=== PATIENT | female | born 1975 | race Caucasian/White ===

== ENCOUNTER 2018-12-01 10:40 | Outpatient (CLI) | payer OTHER ==
[~2018-12-01] VITALS: Ht 157.5 cm; Wt 92.7 kg
--- NOTE | ~2018-12-01 | HEMODYNAMI ---
PATIENT:ANITA BENJAMIN MEDICAL RECORD: [id number] : 71 LOCATION:D.CAT ADMISSION DATE: 12/01/18 Generatedon:12/01/201813:27 Patient name: ANITA BENJAMIN Patient #: [id number] SSN: : 1975 Date of study: 12/01/2018 Page: Of Hemodynamic Procedure Report Patient Data Patient Demographics Procedure consent was obtained First Name: ANITA Gender: Female Last Name: CASSIDY : 1975 Patient #: [id number] Age: 43 year(s) Race: Unknown Additional ID: [id number] Contact details [address]: [address] [place] [address] State: [place] City: [place] Zip code: [address] Past Medical History Allergies Allergen Reaction Date Comments Reported Codeine 12/01/2018 Admission Admission Data Admission Date: 12/01/2018 Admission Time: 10:40 Admit Source: Other Height (in.): 63 BSA: 1.94 (m2) Height (cm.): 160.02 BMI: 35.61 (kg/m2) Weight (lbs.): 201 Weight (kg.): 91.17 Lab Results Lab Result Date: 12/01/2018 Lab Result Time: 0:00 Biochemistry Name Units Result Min Max BUN mg/dl 10 --(-*--)-- 7 18 Creatinine mg/dl 0.9 --(-*--)-- 0.6 1.3 CBC Name Units Result Min Max Hemoglobin g/dl 14.2 --(*---)-- 13.5 17.5 Procedure Procedure Types Cath Procedure Diagnostic Procedure LHC LHC w/Coronaries Procedure Description Procedure Date Procedure Date: 12/01/2018 Procedure Start Time: 13:15 Procedure End Time: 13:26 Procedure Staff Name Function Tee Parrish MD Performing Physician Janny Dior RT Monitor Francisco Javier [place] RT Scrub Jayde Hilario RN Nurse Adilson Pineda RN Director Of Resource Development Procedure Data Cath Procedure Fluoroscopy Diagnostic fluoroscopy Total fluoroscopy Time: 1.5 time: 1.5 min min Diagnostic fluoroscopy Total fluoroscopy dose: 367 dose: 367 mGy mGy Contrast Material Contrast Material Type Amount (ml) Isovue 300 46 Entry Location Entry Primary Successful Side Size Upsize Upsize Entry Closure Momin ccessful Closure Location (Fr) 1 (Fr) 2 (Fr) Remarks Device Remarks Radial Right 6 Fr Mechanical artery Short Compression Estimated blood loss: 5 ml Diagnostic catheters Device Type Used For End Catheter Placement DIAGNOSTIC 5FR Infinity Procedure RBL-TG ([id number]) Procedure Complications No complications Procedure Medications Medication Administration Route Dosage 0.9% NaCl I.V. 100 ml/hr Oxygen etCO2 Nasal cannula 2 l/min Lidocaine 2% added to field 20 Heparin Flush Bag added to field 2 bags (1000units/500ml NS) Radial Cocktail added to field 1 syringe (Verapomil 2mg/Nitro 400mcg/Heparin 1500units) Versed I.V. 2 mg Fentanyl I.V. 50 mcg Versed I.V. 2 mg Fentanyl I.V. 50 mcg Hemodynamics Rest BSA: 1.94 (m2) HGB: 14.2 (g/dl) O2 Consumption: Estimated: 202.31 (ml/min) O2 Co nsumption indexed: Estimated:104.28 (ml/min/m) Heart Rate: 82 (bpm) Pressure Samples Time Site Value (mmHg) Purpose Heart Use Rate(bpm) 13:21 LV 126/-1,14 Snapshot 77 13:21 AO 101/70(85) Pullback 80 13:21 LV 119/13,11 Pullback 80 Gradients Valve Time Site 1 Site 2 Mean SEP/DFP Peak To Heart Use (mmHg) (sec/min) Peak Rate (mmHg) (bpm) Aortic 13:21 LV AO 12 21 18 80 119/13,11 101/70(85) Calculations Valve P-P Mean Valve Index Valve Source Name Gradient Area Flow (cm2) Aortic 18 12 18 12 Snapshots Pre Cath Intra NCS Post Cath Vital Signs Time Heart Resp SPO2 etCO2 NIBP (mmHg) Rhythm Pain Sedation Rate (ipm) (%) (mmHg) Status Level (bpm) 13:04:16 62 13 100 34.6 124/80(100) NSR 0 (11) 10(A) , No pain 13:09:11 80 15 98 35.4 124/80(94) NSR 0 (11) 10(A) , No pain 13:13:31 82 19 99 21.8 120/75(91) NSR 0 (11) 10(A) , No pain 13:17:49 80 13 99 29.4 102/72(84) NSR 0 (11) 9(A) , No pain 13:22:03 79 14 98 28.6 106/63(86) NSR 0 (11) 9(A) , No pain 13:26:17 75 14 100 26.3 118/69(83) NSR 0 (11) 10(A) , No pain Medications Time Medication Route Dose Verified Delivered Reason Notes E ffectiveness by by 13:03:22 0.9% NaCl I.V. 100 Tee Jayde used for ml/hr Francois Sulaiman procedure MD ECHEVARRIA 13:03:30 Oxygen etCO2 2 l/min Tee Jayde used for Nasal Francois Sulaiman procedure cannula MD ECHEVARRIA 13:03:36 Lidocaine 2% added 20ml Tee Oliveira for local to vial Francois Francois anesthetic field MD PATRICK 13:03:41 Heparin Flush added 2 bags Tee Oliveira used for Bag to Francois Francois procedure (1000units/500ml field MD PATRICK NS) 13:03:47 Radial Cocktail added 1 Tee Tee used for (Verapomil to syringe Francois Francois procedure 2mg/Nitro field MD PATRICK 400mcg/Heparin 1500units) 13:11:14 Fentanyl I.V. 50 mcg Tee Jayde for FrancoisRamiro Hilario sedation MD ECHEVARRIA 13:11:14 Versed I.V. 2 mg Tee Jayde for FrancoisRamiro Hilario sedation MD ECHEVARRIA 13:16:46 Versed I.V. 2 mg Tee Jayde for FrancoisRamiro Hilario sedation MD ECHEVARRIA 13:16:52 Fentanyl I.V. 50 mcg Tee Jayde for FrancoisRamiro Hilario sedation MD [facility] Log Time Note 12:46:49 Informed consent obtained and on chart 12:46:52 Admit Source: Other 12:47:13 Diagnostic Cath status Elective 12:51:21 Adilson Pineda RN sent for patient. Start room use. 12:55:11 Patient received from Pre/Post Procedure Room to CCL 1 Alert and oriented. Tansferred to table in Supine position. 12:55:12 Warm blankets applied, and brendan hugger turned on for patient comfort. 12:55:12 Correct patient and procedure confirmed by team. 12:55:13 ECG and BP/O2 sat monitors applied to patient. 12:55:14 Pre-procedure instructions explained to patient. 12:55:14 Pre-op teaching completed and patient verbalized understanding. 12:55:15 Family in waiting room. 12:55:32 H&P Date Dictated: 11/24/2018 Within 30 days and on chart., H&P Addendum completed by physician on day of procedure. (MUST COMPLETE FOR ALL OUTPATIENTS). 12:56:22 Lab results completed and on chart. 13:03:07 Vital chart was started 13:03:22 0.9% NaCl 100 ml/hr I.V. was administered by Jayde Hilario RN; used for procedure; 13:03:30 Oxygen 2 l/min etCO2 Nasal cannula was administered by Jayde Hilario RN; used for procedure; 13:03:36 Lidocaine 2% 20ml vial added to field was administered by Tee Parrish MD; for local anesthetic; 13:03:41 Heparin Flush Bag (1000units/500ml NS) 2 bags added to field was administered by Tee Parrish MD; used for procedure; 13:03:47 Radial Cocktail (Verapomil 2mg/Nitro 400mcg/Heparin 1500units) 1 syringe added to field was administered by Tee Parrish MD; used for procedure; 13:08:25 Baseline sample Acquired. 13:08:29 Rhythm: sinus rhythm 13:08:30 Full Disclosure recording started 13:08:35 Patient allergic to Codeine 13:08:37 Is patient on blood thinner?No 13:08:40 Patient diabetic? No. 13:08:41 Patient not . Patient has had hysterectomy. 13:08:43 Previous problem with sedation/anesthesia? No ? 13:08:44 Snore? Yes 13:08:46 Sleep apnea? No 13:08:48 Deviated septum? No 13:08:49 Opens mouth fully? Yes 13:08:50 Sticks out tongue? Yes 13:08:51 Airway obstruction? No ? 13:08:53 Dentures? No ? 13:08:55 Modified Loki's test Ulnar < 7 seconds 13:08:58 Patient pain scale 0/10 ?. 13:09:01 IV patent on arrival in left hand with 0.9% NaCl at [facility]. 13:09:25 Lab Result : Creatinine 0.9 mg/dl 13:: Lab Result : BUN 10 mg/dl 13:: Lab Result : Hemoglobin 14.2 g/dl 13:09:29 Right Radial & Right Groin area was prepped with chlora-prep and draped in sterile fashion 13:09:30 Alarms reviewed by R. N. 13:09:31 Sharps counted by scrub and verified by R.N. 13:09:35 Use device set Radial Dx or PCI 13:09:37 ACIST Syringe (83533) opened to sterile field. 13:09:38 Bag Decanter (2002S) opened to sterile field. 13:09:39 ACIST Hand Control (06295) opened to sterile field. 13:09:40 ACIST Manifold (78188) opened to sterile field. 13:09:40 Tegaderm 4 x 4 (1626W) opened to sterile field. 13:09:42 Medline Cath Pack ([id number]) opened to sterile field. 13:09:42 DIAGNOSTIC WIRE .035 260cm J wire (980085) opened to sterile field. 13:09:43 MBrace Wrist Support ([id number]) opened to sterile field. 13:09:44 SHEATH 6FR Slender (62-2350) opened to sterile field. 13:10:37 --------ALL STOP TIME OUT------ 13:10:38 Final Timeout: patient, procedure, and site verified with staff and physician. Fire safety check completed. All members of the team are in agreement. 13:10:41 Right Radial & Right Groin site verified by team. 13:10:44 Physical assessment completed. ASA score P 2 - A patient with mild systemic disease as per Tee Parrish MD. 13:10:47 Sedation plan: IV Moderate Sedation Medication:Versed, Fentanyl 13:11:14 Versed 2 mg I.V. was administered by Jayde Hilario RN; for sedation; 13:11:14 Fentanyl 50 mcg I.V. was administered by Jayde Hilario RN; for sedation; 13:11:32 Patient Height : 63 inches 13:11:35 Patient Weight : 201 lbs 13:15:23 Zero performed for pressure channel P1 13:15:33 Procedure started. 13:15:48 Local anesthetic to right radial artery with Lidocaine 2% by Tee Parrish MD.INITIAL ACCESS ONLY 13:16:46 Versed 2 mg I.V. was administered by Jayde Hilario RN; for sedation; 13:16:52 Fentanyl 50 mcg I.V. was administered by Jayde Hilario RN; for sedation; 13:16:54 A 6 Fr Short sheath was inserted into the Right Radial artery 13:19:32 A DIAGNOSTIC 5FR Infinity RBL-TG ([id number]) was advanced over the wire and used for Procedure. 13:20:25 LV gram done using MENDOZA 13:20:27 Injector settings: Ml/sec: 7, Volume: 15, 13:21:06 LV hemodynamics recorded. 13:21:20 EF : 55 % 13:22:21 LCA angiography performed. 13:23:35 RCA angiography performed. 13:23:37 Catheter removed. 13:23:43 TR BAND Standard ([id number]) opened to sterile field. 13:24:07 Procedure ended.(Physican Out) 13:24:31 Sheath removed intact; hemostasis achieved with Mechanical Compression to the Right Radial artery. 13:24:37 Fluoroscopy time 01.50 minutes. 13:24:50 Fluoroscopy dose: 367 mGy 13:24:50 Flurop Dose total: 367 13:25:17 Contrast amount:Isovue 300 46ml. 13:25:22 TR band inflated with 11cc of air. 13:25:25 Post-procedure physical assessment completed. ASA score P 2 - A patient with mild systemic disease as per Tee Parrish MD. 13:25:30 Post procedure rhythm: sinus rhythm 13:25:33 Estimated blood loss: 5 ml 13:25:37 Post procedure instruction explained to patient.Patient verbalizes understanding. 13:25:37 Patient needs reinforcement of post procedure teaching. 13:26:12 Procedure and supply charges have been captured, reviewed, submitted and are correct. 13:26:14 Procedure Complication : No complications 13:26:16 Vital chart was stopped 13:26:18 Report given to Pre/Post Procedure Room. 13:26:19 See physician's report for complete and final results. 13:26:22 Patient transfered to Pre/Post Procedure Room with Bed. 13:26:25 Procedure ended. 13:26:25 Full Disclosure recording stopped 13:26:28 End room use (Document Last) Device Usage Item Name Manufacture Quantity Catalog Hospital Part Current Minimal Lot# / Number Charge Number Stock Stock Serial# Code ACABEBE Acist 1 83189 248443 108040 407356 20 Syringe Medical (08909) Systems Inc Bag Microtek 1 2001S 254090 77457 894750 5 Decanter Medical Inc. (2001S) ACIST Hand Acist 1 99944 674524 879916 042041 5 Control Medical (35863) Systems Inc ACIST Acist 1 99760 864168 111263 681288 5 Manifold Medical (57413) Systems Inc Tegaderm 4 3M 1 1626W 613720 081702 238398 5 x 4 (1626W) Medline Medline 1 [id number] 867635 89084 928169 5 Cath Pack ([id number]) DIAGNOSTIC St Oswald 1 164380 464063 880867 508165 30 WIRE .035 260cm J wire (414904) MBrace Advanced 1 140-0250-00 744032 81310 804262 5 Wrist Vascular Support Dynamics ([id number]) SHEATH 6FR Terumo 1 [id number] 042983 971690 374146 5 Slender (80-1060) DIAGNOSTIC Cardinal 1 [id number] 964308 382347 5 5FR Health Infinity RBL-TG ([id number]) TR BAND Terumo 1 [id number] 135172 946112 444668 40 Standard ([id number]) Signature Audit [place] Stage Time Signature Unsigned Intra-Procedure 12/01/2018 Janny Dior 1:27:40 PM RT(R) Signatures Monitor : Janny Dior Signature : RT Date : Time : [address] [address]
[2018-12-01] MEDS ORDERED: DILT-XR240 MG PO (11:01)
[2018-12-01] MEDS ORDERED: TOPROL XL50 MG PO (11:01)
[2018-12-01 11:18] VITALS: BP 128/82; Ht 157.5 cm; Wt 92.7 kg
[2018-12-01 11:20] LABS: BASOPHILS 0.4 % (0-2); EOSINOPHILS 1.3 % (0-7); HEMATOCRIT 41.6 % (36.0-48.0); HEMOGLOBIN 14.2 g/dL (12-16); IMMATURE GRANULOCYTES 0.1 % (0-5); LYMPHOCYTES 34.2 % (15-50); MCH 29.6 pg (26.0-34.0); MCHC 34.1 g/dL (31.0-37.0); MCV 86.7 fL (80.0-100.0); MEAN PLATELET VOLUME 8.8 fL (7.4-10.4); MONOCYTES 7.4 % (2-11); NEUTROPHILS 56.6 % (40-80); PLATELET COUNT 293 10x3/uL (130-400); RDW 13.5 % (11.5-14.5); WBC 9.1 10x3/uL (4.8-10.8)
[2018-12-01 11:29] LABS: ANION GAP 12.4 mmol/L (8-16); CALCIUM 8.9 mg/dL (8.5-10.1); CARBON DIOXIDE 28.7 mmol/L (21.0-32.0); CREATININE - SERUM 0.9 mg/dL (0.6-1.3); POTASSIUM - SERUM 4.1 mmol/L (3.5-5.1)
--- NOTE | 2018-12-01 13:41 | NUR ---
RECEIVED PT FROM BAR POINTER, PT IS ALERT, DENIES ANY C/O. TR BAND IS CDI, FINGERS WARM, CAP REFILL IS BRISK. NSR, DENIES ANY C/O CHEST PAIN. BP IS 105/62. AT BEDSIDE, CALL LIGHT IN REACH.
--- NOTE | 2018-12-01 14:01 | NUR ---
PT ALERT AND DENIES ANY C/O. TR BAND IS CDI, FINGERS WARM AND PULSES PALPABLE. NSR, RATE IS 83, BP IS 109/60. SANDWICH AND PO FLUIDS SERVED. AT BEDSIDE, CALL LIGHT IN REACH.
--- NOTE | 2018-12-01 14:42 | NUR ---
1415 PT ALERT, DENIES ANY C/O. VSS, TR BAND CDI, PULSES PALPABLE. AT BEDSIDE. HAS TOLERATED SANDWICH AND PO FLUIDS WITH NO C/O. 1430 3 CC OF AIR WEANED FROM TR BAND WITH NO BLEEDING NOTED.
--- NOTE | 2018-12-01 14:57 | NUR ---
3 CC OF AIR WEANED FROM TR BAND WITH NO BLEEDING NOTED. FINGERS WARM AND CAP REFILL IS BRISK.
--- NOTE | 2018-12-01 15:07 | NUR ---
ALL REMAINING AIR WEANED FROM TR BAND WITH NO BLEEDING NOTED.
--- NOTE | 2018-12-01 15:27 | NUR ---
1520 TR BAND REMOVED AND 2X2, TEGADERM PLACED TO SITE. HAND WARM, PULSES PALPABLE. PT DENIES ANY NV DEFICIT. IV DC'D WITH CATH INTACT. PT DRESSING FOR DISCHARGE WITH ASSIST.
--- NOTE | 2018-12-01 16:32 | NUR ---
1545 PT HAS DRESSED FOR DC TO HOME. HAS AMBULTED TO THE BATHROOM AND VOIDED QS. DENIES ANY C/O. 2X2 AND TEGADERM CDI TO RIGHT WRIST, NO BLEEDING OR HEMATOMA NOTED. FINGERS WARM AND PULSES PALPABLE. PT ESCORTED TO PRIVATE AUTO VIA WC BY NURSE WITH DRIVING HER HOME. PT DENIES ANY C/O UPON DC TO HOME, HAS ALL PERSONAL BELONGINGS.
--- NOTE | 2018-12-03 12:55 | OP ---
PATIENT NAME: ANITA BENJAMIN MEDICAL RECORD: [id number] :71 LOCATION:D.CAT ADMISSION DATE: SURGEON: JACKELYN FREEDMAN MD DATE OF OPERATION: 12/01/2018 PROCEDURE: Left heart catheterization, selective coronary angiography, right radial approach. CATHETERS: Radial sheath and Infiniti catheter. The procedure was well tolerated. The patient was returned to the fang. Sheath was removed. TR band was placed. FINDINGS: Left ventriculography in 30-degree MENDOZA view: Normal wall motion. Normal systolic function. CORONARY ANATOMY: LEFT MAIN: Left main is free of disease. LAD: Free of disease in the diagonal system. CIRCUMFLEX: Free of disease in the marginal system. RIGHT CORONARY ARTERY: Dominant artery, gives rise to PDA, free of disease. IMPRESSION: Normal LV systolic function. Normal coronary anatomy. TRANSINT:[id number] Voice Confirmation ID: [id number] DOCUMENT ID: [id number] JACKELYN FREEDMAN MD at 1255 CC: [id number] DICTATION DATE: 12/01/18 1331 WIRE STITCHER OPERATOR: 12/01/18 1421 DEP CLI 12/01/18 [address] [place] [address]
== END 2018-12-01 15:45 | disposition home or self-care (01) ==
LOC: D.CATH 10:40
PROVIDERS: Internal Medicine Interventional Cardiology
DX: I20.0 Unstable angina (principal); I10 Essential (primary) hypertension; E66.3 Overweight; Z68.35 Body mass index [BMI] 35.0-35.9, adult; Z88.5 Allergy status to narcotic agent; Z79.82 Long term (current) use of aspirin; Z79.899 Other long term (current) drug therapy; Z82.49 Family history of ischemic heart disease and other diseases of the circulatory system; Z01.812 Encounter for preprocedural laboratory examination

== ENCOUNTER → 2020-08-15 13:19 | Outpatient (CLI) | payer OTHER ==
[2018-12-01 11:18] VITALS: BMI 37.4
--- NOTE | ~2020-08-15 | EC ---
PATIENT:ANITA BENJAMIN DATE OF SERVICE: 08/15/20 SEX: F MEDICAL RECORD: [id number] DATE OF : 71 [facility] AGE OF PATIENT: 44 ADMISSION DATE: 08/15/20 REFERRING PHYSICIAN: INTERPRETING PHYSICIAN: JACKELYN FREEDMAN MD ECHOCARDIOGRAM REPORT ECHO CHARGES 4 ECHO COMPLETE Date: 08/15/20 CLINICAL DIAGNOSIS: CHEST PAIN/PALPITATIONS ECHOCARDIOGRAPHIC MEASUREMENTS (adult normal given) AC root (d.<3.7cm) 3.1 cm LV Septum d (<1.2 cm> 1.3 cm Valve Excursion 1.7 cm LV Septum (systole) 1.5 cm Left Atria (s.<4.0cm> 2.9 cm LVPW d(<1.2cm) 1.3 cm RV (d.<2.3cm) 3.0 cm LVPW (sytole) 1.5 cm LV diastole(<5.6CM) 4.7 cm MV E-F(>70mm/sec) cm LV systole 2.9 cm LVOT Diameter 2.0 cm MV exc.(>10mm) 1.1 cm Est.ejection fraction (50-75%) % DOPPLER: LVIT cm/sec A 74.0 cm/sec E 66.0 cm/sec LA cm/sec RVSP 16 mmHg LVOT 86 cm/sec AOP1/2T m/s Asc. Ao 139 cm/sec RVOT 79 cm/sec RA cm/sec PA 110 cm/sec AV Gradient Peak 7.74 mmHg AV Mean 3.87 mmHg AV Area 2.3 cm MV Gradient Peak 2.71 mmHg MV Mean 1.34 mmHg MV Area cm COMMENTS: Energy Specialist: 2 YOKASTA URIOSTEGUI Professor Of Social Work: 3 Dr. Xiao TAPE# PACS Pericardial Effusion N DATE OF SERVICE: Adequate 2D, color flow imaging, spectral Doppler, and M-Mode. Mild LVH. LV internal dimensions are normal. Wall motion is normal. EF greater than or equal to 55%. Aortic valve is tricuspid. No evidence of stenosis by Doppler interrogation. Left atrium is normal. Mitral valve shows no prolapse. Trivial MR. Right-sided chambers are grossly normal. Trivial TR. TRANSINT:[id number] Voice Confirmation ID: [id number] DOCUMENT ID: [id number] ECHOCARDIOGRAM REPORT [id number] ANITA BENJAMIN JACKELYN FREEDMAN MD CC: [id number] DICTATION DATE: 08/19/20 0807 FIELD ADMINISTRATIVE ASSISTANT: 08/19/20 1123 DEP CLI 08/15/20 [facility] [address] [place] [address]
[~2020-08-15 13:19] MED LIST: DILT-XR240 MG PO; TOPROL XL50 MG PO
--- NOTE | 2020-08-19 09:31 | ST ---
PATIENT:ANITA BENJAMIN MEDICAL RECORD: [id number] SEX: F LOCATION:[facility] ORDER #: ADMISSION DATE: 08/15/20 AGE OF PATIENT: 44 REFERRING PHYSICIAN: INTERPRETING PHYSICIAN: JACKELYN FREEDMAN MD DATE OF SERVICE: 08/15/2020 PROCEDURE: Treadmill stress test. Baseline ECG is normal. Exercised for 9 minutes on Lalo protocol. Maximum heart rate 156 beats per minute, greater than 85% of maximum predicted. No ECG changes for ischemia. No symptoms of ischemia. Normal blood pressure response to exercise. No arrhythmias noted. Good exercise tolerance for age. TRANSINT:[id number] Voice Confirmation ID: [id number] DOCUMENT ID: [id number] JACKELYN FREEDMAN MD at 0931 CC: [id number] DICTATION DATE: 08/16/20 1044 CORPORATE BANKING OFFICER: 08/17/20 0227 DEP CLI 08/15/20 [address] [place] [address]
== END | disposition home or self-care (01) ==
LOC: D.HCCECHO 13:19
PROVIDERS: ATTEND Internal Medicine Interventional Cardiology
DX: R07.9 Chest pain, unspecified (principal)